=== PATIENT | male | born 1995 ===

== ENCOUNTER 2019-06-15 08:21 | Emergency (ER) | payer OTHER ==
[~2019-06-15] VITALS: Ht 180.3 cm; Wt 88.0 kg
--- NOTE | 2019-06-15 09:00 | NUR ---
Pt resting. Wakens easily to name. Pt reports no current nees at this time.
[2019-06-15] MEDS ORDERED: LACTATED RINGERS 1,000 ML IV ONE (09:23)
--- NOTE | 2019-06-15 09:52 | ED General ---
General Chief Complaint: Substance Abuse Stated Complaint: ALCOHOL INTOXICATION Nursing Triage Note: PT STATES HE BEGAN DRINKING MIXED DRINKS AROUND 0200 AND DOES NOT REMEMBER ANYTHING AFTER THAT. PT WAS FOUND BY [employer] OUTSIDE HIS CAR AT [address] [facility] IN [place] C[place] TO HIS HOME. PT DOES NOT REMEMBER HOW HE GOT THERE. Nursing Sepsis Screen: No Definite Risk Source of Information: Patient Exam Limitations: No Limitations History of Present Illness Date Seen by Provider: Jun 15, 2019 Time Seen by Provider: 09:26 Initial Comments Here with report of drinking too much last night. Apparently he was found on the ground outside of his car. He was not attempting to drive and he was passed out. He apparently had vomited. Police were called and they called EMS. Patient elected to come to the emergency department. EMS did initiate IV and 1 L of normal saline. Patient denies any complaints or pain. Denies any injuries. Does admit to drinking quite a bit last night. Does have vomitus on his clothes. Timing/Duration: 4-6 Hours Severity: Moderate Associated Systoms: No Chest Pain, No Cough, No Fever/Chills, No Headaches; Nausea/Vomiting; No Shortness of Air, No Weakness Allergies and Home Medications Allergies Coded Allergies: No Known Drug Allergies (Unverified , 06/15/19) Patient Home Medication List Home Medication List Reviewed: Yes Review of Systems Review of Systems Constitutional: see HPI; No chills, No fever EENTM: no symptoms reported Respiratory: no symptoms reported Cardiovascular: no symptoms reported Gastrointestinal: see HPI Genitourinary: no symptoms reported Musculoskeletal: no symptoms reported Skin: no symptoms reported Psychiatric/Neurological: See HPI All Other Systems Reviewed Negative Unless Noted: Yes Past Khgqysi-Rxcbbq-Smsboi Hx Past Med/Social Hx: Reviewed Nursing Past Med/Soc Hx Patient Social History Alcohol Use: Occasionally Uses Alcohol Beverage of Choice: Beer, Other Recreational Drug Use: No Smoking Status: Light Tobacco Smoker Type Used: Cigarettes 2nd Hand Smoke Exposure: No Recent Foreign Travel: No Contact w/Someone Who Travel: No Recent Infectious Disease Expo: No Recent Hopitalizations: No Physical Abuse: No Sexual Abuse: No Mistreated: No Fear: No Seasonal Allergies Seasonal Allergies: No Past Medical History Surgeries: Yes Tonsillectomy Respiratory: No Cardiac: No Neurological: No Sexually Transmitted Disease: No Genitourinary: No Gastrointestinal: No Musculoskeletal: No Endocrine: No HEENT: No Hearing Impairment: Denies Cancer: No Psychosocial: No Integumentary: No Blood Disorders: No Family Medical History Reviewed Nursing Family Hx Physical Exam Vital Signs Vital Signs - First Documented 06/15/19 08:35 Temp 96.8 Pulse 100 Resp 15 B/P (MAP) 119/78 (92) Pulse Ox 99 O2 Delivery Room Air Capillary Refill : Less Than 3 Seconds Height, Weight, BMI Height: 5'11.00" Weight: 194lbs. oz. 87.029673jv; BMI Method:Stated General Appearance: No Apparent Distress, WD/WN HEENT: PERRL/EOMI, Pharynx Normal Neck: Non Tender, Supple Respiratory: Lungs Clear, Normal Breath Sounds Cardiovascular: Regular Rate, Rhythm, No Murmur Gastrointestinal: Non Tender, Soft Back: Normal Inspection, No CVA Tenderness, No Vertebral Tenderness Extremity: Normal Range of Motion, Non Tender Neurologic/Psychiatric: Alert, Oriented x3, No Motor/Sensory Deficits Skin: Normal Color, Warm/Dry, Other (no obvious signs of injury, head injury, contusion or abrasions.) Progress/Results/Core Measures Suspected Sepsis Recent Fever Within 48 Hours: No Infection Criteria Present: None New/Unexplained Altered Menta: No Sepsis Screen: No Definite Risk SIRS Temperature:96.8 Pulse: 100 Respiratory Rate: 15 Blood Pressure 119 /78 Mean: 92 Results/Orders My Orders Orders - DELILAH NASSAR MD Lactated Ringers (Lr 1000 Ml Iv Solution (06/15/19 09:23) Medications Given in ED Current Medications Medications Dose Ordered Sig/Doni Route Start Time Stop Time Status Last Admin Dose Admin Lactated Ringer's 1,000 ml @ 0 mls/hr Q0M ONCE IV 06/15/19 09:23 06/15/19 09:24 DC 06/15/19 09:31 0 MLS/HR Vital Signs/I&O 06/15/19 08:35 Temp 96.8 Pulse 100 Resp 15 B/P (MAP) 119/78 (92) Pulse Ox 99 O2 Delivery Room Air Capillary Refill : Less Than 3 Seconds Blood Pressure Mean: 92 Progress Note : Progress Note Seen and evaluated. Patient denies any concerns or injuries. Normal saline bolus by EMS is complete. We will give LR 1 L bolus. No indication for labs or further evaluation other than monitoring at this point with patient's mentation. He is in agreement. Monitor patient. 1100: Overall feeling better. He would like to go home by taxi and we will help him arrange that. Discharged home with return precautions. Patient verbalize understanding instructions and agreement with plan. Departure Impression Primary Impression: Alcohol intoxication Qualified Codes: F10.920 - Alcohol use, unspecified with intoxication, uncomplicated Disposition: 01 HOME, SELF-CARE Condition: Improved Departure-Patient Inst. Decision time for Depature: 11:01 Referrals: NO,LOCAL PHYSICIAN (PCP/Family) Primary Care Physician Patient Instructions: ALCOHOL AND SUBSTANCE ABUSE Add. Discharge Instructions: All discharge instructions reviewed with patient and/or family. Voiced understanding. Drink plenty of nonalcoholic fluids and eat a normal diet. You should not drive for several more hours due to intoxication. Follow-up with your doctor this week as needed. Return for worse pain, fever, vomiting, weakness, breathing problems or other concerns as needed. DELILAH NASSAR MD Jun 15, 2019 09:52
[2019-06-15 11:32] VITALS: BP 126/77
== END 2019-06-15 11:35 | disposition home or self-care (01) ==
LOC: ER 08:24
DX: F10.129 Alcohol abuse with intoxication, unspecified (principal); F17.210 Nicotine dependence, cigarettes, uncomplicated; Z90.89 Acquired absence of other organs; Y90.9 Presence of alcohol in blood, level not specified